=== PATIENT | female | born 1960 | race Caucasian/White ===

== ENCOUNTER 2022-02-14 11:42 | Outpatient (CLI) | payer BC ==
[2022-02-14 12:55] LABS: #Basophils 0.1 10x3/uL (0.0-0.2); #Eosinphils 0.2 10x3/uL (0.0-0.5); #Monocytes 0.5 10x3/uL (0.0-1.1); #Neutrophils 3.9 10x3/uL (1.5-8.4); %Basophils 0.7 % (0.0-2.0); %Eosinophils 2.3 % (0.0-6.0); %Lymphocytes 33.6 % (18.0-47.0); %Monocytes 6.5 % (0.0-10.0); %Neutrophils 56.6 % (40.0-75.0); Hemoglobin 14.7 g/dL (12.0-15.5); Mean Corpuscular HGB CONC 35.9 g/dL (32.0-36.0); Mean Corpuscular Hemoglobin 32.5 pg (27.0-33.0); Mean Corpuscular Volume 90.5 fl (81.6-98.3); Mean Platelet Volume 10.3 fl (7.4-10.4); Platelet Count 240 10x3/uL (150-450); RBC Distribution Width 11.5 % (11.5-14.5); Red Blood Cell (RBC) Count 4.53 10x6/uL (3.90-5.03); White Blood Cell (WBC) Count 6.9 10x3/uL (3.5-10.5)
[2022-02-14 13:19] LABS: Anion Gap 14 mmol/L (10-20); BUN (Urea Nitrogen) 17 mg/dL (9.8-20.1); Calc. Creatinine Clearance 0 mL/min (70-130); Calcium 9.6 mg/dL (7.8-10.44); Carbon Dioxide 25 mmol/L (22-29); Chloride 104 mmol/L (98-107); Estimated GFR 74; Glucose 95 mg/dL (70-105); Potassium 4.8 mmol/L (3.5-5.1); Sodium 138 mmol/L (136-145)
== END 2022-02-14 11:43 | disposition home or self-care (01) ==
LOC: LABBT 11:42
PROVIDERS: ATTEND Orthopaedic Surgery
DX: Z01.818 Encounter for other preprocedural examination (principal); S83.241A Other tear of medial meniscus, current injury, right knee, initial encounter
CPT/HCPCS: 71046; 80048; 85025; 93005; 93010

== ENCOUNTER 2022-02-16 08:12 | Day surgery (SDC) | payer BC ==
[2022-02-15 15:21] VITALS: BMI 29.7
[2022-02-16] MEDS ORDERED: Lidocaine 2% PF 5 ML VIAL ONE (09:09)
[2022-02-16] MEDS ORDERED: Bupivacaine PF 0.5% 30 ML VIAL ONE (09:09)
[2022-02-16] MEDS ORDERED: PROPOFOL 20 ML ONE (09:09)
[2022-02-16] MEDS ORDERED: CEFAZOLIN 2 GM VIAL ONE (10:36)
[2022-02-16] MEDS ORDERED: Sodium Chloride 0.9% 100 ML ONE (10:36)
[2022-02-16] MEDS ORDERED: Dexamethasone 20 MG/5 ML VIAL ONE (10:55)
[2022-02-16] MEDS ORDERED: Lidocaine 1% PF 5 ML VIAL ONE (10:55)
[2022-02-16] MEDS ORDERED: Ondansetron PF 4 MG/2 ML Vial ONE (10:55)
[2022-02-16] MEDS ORDERED: PROPOFOL 200 MG/20 ML VIAL ONE (10:55)
[2022-02-16] MEDS ORDERED: Fentanyl 100 MCG/2 ML VIAL ONE ×2 (12:03→13:32)
[2022-02-16] MEDS ORDERED: Ketorolac Tromethamine 30 MG/ML VIAL ONE (12:30)
[2022-02-16] MEDS ORDERED: HYDROcodone/Acetaminophen 5/325 mg Tablet ONE (14:23)
== END 2022-02-16 15:35 | disposition home or self-care (01) ==
LOC: SDC 08:12
PROVIDERS: ATTEND Orthopaedic Surgery
DX: S83.241A Other tear of medial meniscus, current injury, right knee, initial encounter (principal); S83.261A Peripheral tear of lateral meniscus, current injury, right knee, initial encounter; S83.281A Other tear of lateral meniscus, current injury, right knee, initial encounter; M23.8X1 Other internal derangements of right knee; M23.41 Loose body in knee, right knee; M17.11 Unilateral primary osteoarthritis, right knee; I10 Essential (primary) hypertension; Z79.899 Other long term (current) drug therapy; Z88.2 Allergy status to sulfonamides; X58.XXXA Exposure to other specified factors, initial encounter; Y93.23 Activity, snow (alpine) (downhill) skiing, snowboarding, sledding, tobogganing and snow tubing
CPT/HCPCS: J1100; J1885; J2001; J2405; J2704; J3010; J3490; S0020